=== PATIENT | female | born 1985 | race Caucasian/White ===

== ENCOUNTER 2017-06-20 23:49 | Emergency (ER) | payer OTHER ==
[2017-06-20 23:57] VITALS: BP 137/77
--- NOTE | 2017-06-21 00:01 | ED Physician Documentation ---
History of Present Illness - Stated complaint Stated Complaint: FIT FOR CONFINEMENT - Chief complaint Chief Complaint: General - History obtained from History obtained from: Patient, Police - History of Present Illness Timing: Today - Additonal information Additional information: Patient is a 32 year old female who was brought in by police who were requesting a fit for confinement. Patient denied any complaints and was awake, alert and oriented in no distress. Review of Systems Ten Systems: 10 systems reviewed and negative PD PAST MEDICAL HISTORY - Past Medical History Respiratory: Asthma - Past Surgical History Past Surgical History: Yes - Present Medications Home Medications: Ambulatory Orders Medication Instructions Recorded Confirmed Cephalexin [Keflex] 500 mg PO QID #40 capsule 10/05/15 Meloxicam [Mobic] 7.5 mg PO BIDWM 7 Days tablet 10/05/15 Meloxicam [Mobic] 7.5 mg PO DAILY #20 tablet 12/21/15 Methocarbamol [Robaxin] 1,000 mg PO Q8HR #30 tablet 12/21/15 raNITIdine [Zantac] 150 mg PO DAILY #30 tablet 12/21/15 - Allergies Allergies/Adverse Reactions: Allergies Allergy/AdvReac Type Severity Reaction Status Date / Time No Known Drug Allergies Allergy Verified 10/05/15 13:18 - Social History Does the pt smoke?: Yes Smoking Status: Current every day smoker Does the pt drink ETOH?: Yes Does the pt have substance abuse?: No PD ED PE NORMAL - Vitals Vital signs reviewed: Yes - General General: Alert and oriented X 3, No acute distress, Well developed/nourished - HEENT HEENT: Atraumatic - Cardiac Cardiac: RRR - Respiratory Respiratory: No respiratory distress - Derm Derm: Warm and dry, No rash - Extremities Extremities: No deformity - Neuro Neuro: Alert and oriented X 3, No motor deficit, Normal speech Eye Opening: Spontaneous Results - Vitals Vitals: Vital Signs - 24 hr 06/20/17 23:55 Temperature 36.6 C Heart Rate 85 Respiratory 16 Rate Blood Pressure 137/77 H O2 Saturation 99 Oxygen O2 Source Room air PD MEDICAL DECISION MAKING - ED course Complexity details: reviewed old records, d/w patient ED course: patient was seen and examined at bedside. patient was awake alert and oriented. patient was in no distress and showed no signs of significant impairment. Patient was fit for confinement. Departure - Departure Disposition: 01 Home, Self Care Clinical Impression: Normal exam Condition: Good Instructions: ED Sciatica Follow-Up: primary,care provider [Other] - As Needed Comments: patient is fit for confinement
== END 2017-06-21 00:06 | disposition home or self-care (01) ==
LOC: ED 23:49
DX: Z02.89 Encounter for other administrative examinations (principal); F17.200 Nicotine dependence, unspecified, uncomplicated
CPT/HCPCS: 36415; 99282

== ENCOUNTER 2017-06-20 23:54 | Outpatient (CLI) | payer OTHER | END 2017-06-20 23:55 | disposition home or self-care (01) | LOC: LAB 23:54 | PROVIDERS: ATTEND Pathology Blood Banking & Transfusion Medicine | DX: Z01.89 Encounter for other specified special examinations (principal) | CPT/HCPCS: 36415 ==